=== PATIENT | female | born 2000 | race Two or more races ===

== ENCOUNTER 2025-02-04 11:41 | Emergency (ER) | payer OTHER ==
[~2025-02-04] VITALS: Ht 157.5 cm; Wt 92.5 kg
[2025-02-04] MEDS ORDERED: CELEBREX50 MG PO (12:27)
[2025-02-04] MEDS ORDERED: LAMOTRIGINE200 MG PO (12:27)
[2025-02-04] MEDS ORDERED: DEXAMETHASONE SODIUM PHOSPHATE 4 MG/ML VIAL IM STA (12:36)
[2025-02-04] MEDS ORDERED: KETOROLAC TROMETHAMINE 30 MG VIAL IM STA (12:36)
[2025-02-04] MEDS ORDERED: ORPHENADRINE CITRATE 100 MG TABLET PO ONE (12:45)
[2025-02-04] MEDS ORDERED: KETOROLAC TROMETHAMINE 30 MG VIAL ONE (13:23)
[2025-02-04] MEDS ORDERED: DEXAMETHASONE SODIUM PHOSPHATE 4 MG/ML VIAL ONE (13:23)
== END 2025-02-04 13:34 | disposition home or self-care (01) ==
LOC: ER 11:42
DX: M62.838 Other muscle spasm (principal); R51.9 Headache, unspecified